=== PATIENT | female | born 1960 | race Caucasian/White ===

== ENCOUNTER 2016-06-21 18:39 | Emergency (ER) | payer OTHER ==
[~2016-06-21] VITALS: Ht 162.6 cm; Wt 68.6 kg
[~2016-06-21 18:39] MED LIST: ADVAIR 100/501 DISK IH; ADVAIR 500/501 DISK IH; AMBIEN10 MG PO; AUGMENTIN875 MG PO; INDERAL60 MG PO; LAMICTAL100 MG PO; LAMICTAL200 MG PO; NEXIUM40 MG PO; NORCO 5/3251 TABLET PO; PHENERGAN50 MG/1 M1 IM; PREDNISONE10 MG PO; PREDNISONE20 MG PO; PROTONIX40 MG PO; PROVENTIL HFA6.7 GM; RELPAX40 MG PO; REQUIP0.25 MG PO; RISPERDAL2 MG PO; ROPINIROLE HCL5 MG PO; SAPHRIS10 MG SL; SEROQUEL100 MG PO; SINGULAIR10 MG PO; SPIRIVA1 INHALATI IH; STADOL NASAL2.5 ML NS; STADOL PO; TAMIFLU75 MG PO; VALIUM10 MG PO; VENTOLIN HFA18 GM IH; VERAPAMIL HCL240 MG PO; VERAPAMIL HCL80 MG PO; VERELAN 240 MG240 MG PO; ZANAFLEX4 M1 PO; ZANAFLEX4 MG PO
[2016-06-21] MEDS ORDERED: PEN-VEE K,VEET500 MG PO (20:26)
[2016-06-21] MEDS ORDERED: NORCO 5/3251 TABLET PO (20:26)
[2016-06-21 21:12] VITALS: BP 114/80
== END 2016-06-21 21:13 | disposition home or self-care (01) ==
LOC: EME 18:39
DX: H61.21 Impacted cerumen, right ear (principal); K02.9 Dental caries, unspecified
CPT/HCPCS: 99281; 99284

== ENCOUNTER 2016-09-11 18:19 | Observation (INO) | payer OTHER ==
[~2016-09-11] VITALS: Ht 160 cm; Wt 67.9 kg
[~2016-09-11 18:19] MED LIST changes: +PEN-VEE K,VEET500 MG PO
[2016-09-11 19:01] LABS: HEMATOCRIT 50.7 % (36.0-46.0); MCH 30.7 PG (29.0-34.0); MCHC 33.1 G/DL (30.0-36.0); MCV 92.5 FL (83-99); PLATELET COUNT 326 K/uL (156-360); RBC DIS.WIDTH-CV 13.3 % (11.8-14.6); RBC DIS.WIDTH-SD 45.6 % (39-53); RED BLOOD COUNT 5.48 M/uL (3.80-5.20); WHITE BLOOD COUNT 11.9 K/uL (4.1-10.2)
[2016-09-11 19:11] LABS: CHLORIDE 106 mEq/L (99-109); POTASSIUM 3.8 mEq/L (3.7-5.4); SODIUM 142 mEq/L (136-147)
[2016-09-11 19:13] LABS: GLUCOSE 97 mg/dL (70-99)
[2016-09-11 19:15] LABS: ANION GAP 16 MEQ/L (2-14); TOTAL BILIRUBIN 0.4 mg/dL (0.0-1.0)
[2016-09-11 19:17] LABS: ALKALINE PHOSPHATASE 130 IU/L (3-129); GFR ESTIMATE (CALCULATED) > 59 mL/min/
[2016-09-11 19:18] LABS: UREA NITROGEN (BUN) 28 mg/dL (9-23)
[2016-09-11 20:24] LABS: LIPASE 14 U/L (1.0-51.0)
[2016-09-11] MEDS ORDERED: RANITIDINE HCL150 MG PO (23:20)
[2016-09-11] MEDS ORDERED: NICOTINE PATCH1 EAC2 TD (23:21)
[2016-09-11] MEDS ORDERED: DIAZEPAM10 MG PO (23:24)
[2016-09-11 23:37] LABS: ADD MIUA? YES; BILIRUBIN NEGATIVE; BLOOD SMALL; COLOR YELLOW ((YELLOW)); GLUCOSE (STRIP) NEGATIVE; KETONES 5; LEUKOCYTES NEGATIVE; NITRITE NEGATIVE; PROTEIN (STRIP) 30; SPECIFIC GRAVITY 1.039 (1.000-1.030); UROBILINOGEN 0.2 MG/DL (0.2-1.0)
[2016-09-11 23:54] LABS: BACTERIA NONE SEEN /HPF; EPITHELIAL CELLS RARE /HPF; MUCUS TRACE /LPF; RED BLOOD CELLS 0-5 /HPF (0-5); UCUL ADDED? NO; WHITE BLOOD CELLS 0-5 /HPF (0-5)
[2016-09-12] MEDS ORDERED: FLAGYL500 MG PO (00:37)
[2016-09-12] MEDS ORDERED: CIPRO500 MG PO (00:37)
[2016-09-12 00:39] LABS: C DIFF TOXIN NEGATIVE (NEGATIVE)
[2016-09-12 01:06] LABS: PROBE CHECK PASS; SPECIMEN PROCESSING CONTROL PASS
[2016-09-12 02:44] VITALS: BP 160/112
== END 2016-09-12 02:45 | disposition left against medical advice (07) ==
LOC: EME 18:19 → 5WEST 23:47 → EDOF 09-12 00:29
PROVIDERS: Emergency Medicine
DX: K52.9 Noninfective gastroenteritis and colitis, unspecified (principal); K92.1 Melena; I10 Essential (primary) hypertension; F17.200 Nicotine dependence, unspecified, uncomplicated
CPT/HCPCS: 74177; 80053; 81003; 83690; 85027; 86850; 86900; 86901; 87493; 87506; 99281; 99284; G0378; J0744; J3010; J7030; S0030

== ENCOUNTER 2016-10-31 18:42 | Emergency (ER) | payer OTHER ==
[~2016-10-31] VITALS: Ht 160 cm; Wt 68.6 kg
[~2016-10-31 18:42] MED LIST changes: +CIPRO500 MG PO; +DIAZEPAM10 MG PO; +FLAGYL500 MG PO; +NICOTINE PATCH1 EAC2 TD; +RANITIDINE HCL150 MG PO
[2016-10-31 19:16] LABS: HEMATOCRIT 40.5 % (36.0-46.0); MCH 29.3 PG (29.0-34.0); MCHC 32.3 G/DL (30.0-36.0); MCV 90.6 FL (83-99); MEAN PLAT.VOLUME 9.7 uM^3 (9.5-12.4); PLATELET COUNT 262 K/uL (156-360); RBC DIS.WIDTH-CV 13.1 % (11.8-14.6); RBC DIS.WIDTH-SD 43.5 % (39-53); RED BLOOD COUNT 4.47 M/uL (3.80-5.20); WHITE BLOOD COUNT 6.5 K/uL (4.1-10.2)
[2016-10-31 19:34] LABS: CHLORIDE 107 mEq/L (99-109); SODIUM 142 mEq/L (136-147)
[2016-10-31 19:36] LABS: GLUCOSE 91 mg/dL (70-99)
[2016-10-31 19:38] LABS: ANION GAP 11 MEQ/L (2-14); TOTAL BILIRUBIN 0.3 mg/dL (0.0-1.0)
[2016-10-31 19:40] LABS: ALKALINE PHOSPHATASE 133 IU/L (3-129); GFR ESTIMATE (CALCULATED) > 59 mL/min/
[2016-10-31 19:41] LABS: UREA NITROGEN (BUN) 15 mg/dL (9-23)
[2016-10-31 22:46] LABS: ADD MIUA? YES; BILIRUBIN NEGATIVE; BLOOD SMALL; COLOR YELLOW ((YELLOW)); GLUCOSE (STRIP) NEGATIVE; KETONES NEGATIVE; LEUKOCYTES LARGE; NITRITE NEGATIVE; PROTEIN (STRIP) NEGATIVE; SPECIFIC GRAVITY 1.014 (1.000-1.030); UROBILINOGEN 0.2 MG/DL (0.2-1.0)
[2016-10-31 22:50] LABS: BACTERIA RARE /HPF; EPITHELIAL CELLS 1+ /HPF; MUCUS TRACE /LPF; RED BLOOD CELLS 0-5 /HPF (0-5); UCUL ADDED? NO; WHITE BLOOD CELLS 0-5 /HPF (0-5)
[2016-10-31 23:12] VITALS: BP 153/94
== END 2016-10-31 23:15 | disposition home or self-care (01) ==
LOC: EME 18:42
DX: N93.9 Abnormal uterine and vaginal bleeding, unspecified (principal); Z85.41 Personal history of malignant neoplasm of cervix uteri; Z88.6 Allergy status to analgesic agent; F17.200 Nicotine dependence, unspecified, uncomplicated
CPT/HCPCS: 76856; 80053; 81003; 85027; 99281; 99284

== ENCOUNTER 2017-04-03 14:49 | Emergency (ER) | payer OTHER ==
[~2017-04-03] VITALS: Ht 162.6 cm; Wt 67.8 kg
[2017-04-03 15:28] LABS: HEMATOCRIT 34.2 % (36.0-46.0); MCH 30.9 PG (29.0-34.0); MCHC 32.7 G/DL (30.0-36.0); MCV 94.5 FL (83-99); MEAN PLAT.VOLUME 9.4 uM^3 (9.5-12.4); PLATELET COUNT 352 K/uL (156-360); RBC DIS.WIDTH-CV 14.6 % (11.8-14.6); RBC DIS.WIDTH-SD 50.7 % (39-53); RED BLOOD COUNT 3.62 M/uL (3.80-5.20); WHITE BLOOD COUNT 7.1 K/uL (4.1-10.2)
[2017-04-03 15:38] LABS: CHLORIDE 109 mEq/L (99-109); POTASSIUM 4.4 mEq/L (3.7-5.4); SODIUM 139 mEq/L (136-147)
[2017-04-03 15:40] LABS: GLUCOSE 98 mg/dL (70-99)
[2017-04-03 15:41] LABS: ANION GAP 10 MEQ/L (2-14)
[2017-04-03 15:44] LABS: GFR ESTIMATE (CALCULATED) > 59 mL/min/
[2017-04-03 15:45] LABS: UREA NITROGEN (BUN) 23 mg/dL (9-23)
[2017-04-03 17:59] LABS: TROP-I INTERPRETATION NEGATIVE; TROPONIN-I 0.01 ng/mL (0.0-0.30)
[2017-04-03 19:55] VITALS: BP 113/68
== END 2017-04-03 19:57 | disposition home or self-care (01) ==
LOC: EME 14:49
PROVIDERS: Emergency Medicine
DX: R29.6 Repeated falls (principal); R51 Headache; S02.2XXA Fracture of nasal bones, initial encounter for closed fracture; W19.XXXA Unspecified fall, initial encounter; Z91.81 History of falling; R03.1 Nonspecific low blood-pressure reading; J44.9 Chronic obstructive pulmonary disease, unspecified; Z85.41 Personal history of malignant neoplasm of cervix uteri; Z90.710 Acquired absence of both cervix and uterus; F14.21 Cocaine dependence, in remission; F17.200 Nicotine dependence, unspecified, uncomplicated
CPT/HCPCS: 70160; 70450; 71020; 80048; 84484; 85027; 93005; 99281; 99285

== ENCOUNTER 2017-06-02 17:02 | Emergency (ER) | payer OTHER ==
[~2017-06-02] VITALS: Ht 162.6 cm; Wt 66.3 kg
[2017-06-02 17:53] LABS: HEMATOCRIT 48.2 % (36.0-46.0); MCH 31.2 PG (29.0-34.0); MCHC 33.6 G/DL (30.0-36.0); MCV 92.7 FL (83-99); MEAN PLAT.VOLUME 9.8 uM^3 (9.5-12.4); PLATELET COUNT 331 K/uL (156-360); RBC DIS.WIDTH-CV 14.1 % (11.8-14.6); WHITE BLOOD COUNT 6.3 K/uL (4.1-10.2)
[2017-06-02 18:05] LABS: CHLORIDE 105 mEq/L (99-109); POTASSIUM 3.9 mEq/L (3.7-5.4); SODIUM 142 mEq/L (136-147)
[2017-06-02 18:07] LABS: GLUCOSE 97 mg/dL (70-99)
[2017-06-02 18:09] LABS: ANION GAP 16 MEQ/L (2-14); TOTAL BILIRUBIN 0.5 mg/dL (0.0-1.0)
[2017-06-02 18:11] LABS: ALKALINE PHOSPHATASE 142 IU/L (3-129); GFR ESTIMATE (CALCULATED) > 59 mL/min/
[2017-06-02 18:12] LABS: UREA NITROGEN (BUN) 16 mg/dL (9-23)
[2017-06-02 18:14] LABS: LIPASE 18 U/L (1.0-51.0)
[2017-06-02 19:57] LABS: ADD MIUA? YES; BILIRUBIN NEGATIVE; BLOOD NEGATIVE; COLOR YELLOW ((YELLOW)); GLUCOSE (STRIP) NEGATIVE; KETONES 80; LEUKOCYTES NEGATIVE; NITRITE NEGATIVE; PROTEIN (STRIP) NEGATIVE; UROBILINOGEN 0.2 MG/DL (0.2-1.0)
[2017-06-02 20:06] LABS: BACTERIA RARE /HPF; EPITHELIAL CELLS 4+ /HPF; MUCUS 1+ /LPF; RED BLOOD CELLS 0-5 /HPF (0-5); UCUL ADDED? NO; WHITE BLOOD CELLS 0-5 /HPF (0-5)
[2017-06-02] MEDS ORDERED: FLAGYL500 MG PO (20:12)
[2017-06-02 20:21] LABS: SPECIFIC GRAVITY 1.082 (1.000-1.030)
[2017-06-02 20:26] VITALS: BP 146/93
== END 2017-06-02 20:25 | disposition home or self-care (01) ==
LOC: EME 17:02
PROVIDERS: Physician Assistant
DX: K52.9 Noninfective gastroenteritis and colitis, unspecified (principal); K21.9 Gastro-esophageal reflux disease without esophagitis; J44.9 Chronic obstructive pulmonary disease, unspecified; Z85.41 Personal history of malignant neoplasm of cervix uteri; K22.70 Barrett's esophagus without dysplasia; F32.9 Major depressive disorder, single episode, unspecified; F17.200 Nicotine dependence, unspecified, uncomplicated; Z88.6 Allergy status to analgesic agent
CPT/HCPCS: 74177; 80053; 81003; 83690; 85027; 99281; 99284; J2405; J7030

== ENCOUNTER 2017-08-21 16:43 | Emergency (ER) | payer OTHER ==
[~2017-08-21] VITALS: Ht 160 cm; Wt 69.1 kg
[2017-08-21 17:22] LABS: BASOPHIL (%) 0.8 % (0-1); BASOPHIL COUNT 0.1 K/uL (0-0.1); EOSINOPHIL COUNT 0.3 K/uL (0-0.3); HEMATOCRIT 42.4 % (36.0-46.0); IMMATURE GRANULOCYTE (%) 0.3 % (0.0-0.7); LYMPHOCYTE (%) 40.1 % (15-42); LYMPHOCYTE COUNT 2.9 K/uL (1.0-2.8); MCH 30.9 PG (29.0-34.0); MCV 93.6 FL (83-99); MONOCYTE (%) 6.3 % (3-12); MONOCYTE COUNT 0.5 K/uL (0-0.8); NEUTROPHIL (%) 48.5 % (45-76); NEUTROPHIL COUNT 3.5 K/uL (1.8-6.4); PLATELET COUNT 292 K/uL (156-360); RBC DIS.WIDTH-CV 14.6 % (11.8-14.6); RBC DIS.WIDTH-SD 50.7 % (39-53); RED BLOOD COUNT 4.53 M/uL (3.80-5.20); WHITE BLOOD COUNT 7.3 K/uL (4.1-10.2)
[2017-08-21 18:07] LABS: ALBUMIN 3.6 g/dL (3.2-4.8); CHLORIDE 111 mEq/L (99-109); POTASSIUM 4.4 mEq/L (3.7-5.4); SODIUM 146 mEq/L (136-147)
[2017-08-21 18:10] LABS: GLUCOSE 93 mg/dL (70-99); TOTAL PROTEIN 6.4 g/dL (6.4-8.3)
[2017-08-21 18:12] LABS: TOTAL BILIRUBIN 0.1 mg/dL (0.0-1.0)
[2017-08-21 18:13] LABS: ALKALINE PHOSPHATASE 125 IU/L (3-129); CREATININE 0.8 mg/dL (0.6-1.3); GFR ESTIMATE (CALCULATED) > 59 mL/min/
[2017-08-21 18:14] LABS: UREA NITROGEN (BUN) 15 mg/dL (9-23)
[2017-08-21 18:15] LABS: AST (GOT) 9 IU/L (2-34)
[2017-08-21 18:16] LABS: ALT (GPT) 8 IU/L (3-49)
[2017-08-21 18:17] LABS: LIPASE 18 U/L (1.0-51.0)
[2017-08-21 20:57] LABS: APPEARANCE SL.HAZY ((CLEAR)); BILIRUBIN NEGATIVE; BLOOD SMALL; COLOR YELLOW ((YELLOW)); GLUCOSE (STRIP) NEGATIVE; KETONES NEGATIVE; LEUKOCYTES MODERATE; NITRITE NEGATIVE; PROTEIN (STRIP) NEGATIVE; UROBILINOGEN 0.2 MG/DL (0.2-1.0)
[2017-08-21 21:00] LABS: BACTERIA RARE /HPF; EPITHELIAL CELLS RARE /HPF; MUCUS TRACE /LPF
[2017-08-21] MEDS ORDERED: CIPRO500 MG PO (21:31)
[2017-08-21] MEDS ORDERED: FLAGYL500 MG PO (21:32)
[2017-08-21 22:41] VITALS: BP 152/95
== END 2017-08-21 22:42 | disposition home or self-care (01) ==
LOC: EME 16:43
PROVIDERS: Physician Assistant
DX: K52.9 Noninfective gastroenteritis and colitis, unspecified (principal); K59.00 Constipation, unspecified; K76.0 Fatty (change of) liver, not elsewhere classified; Q63.1 Lobulated, fused and horseshoe kidney; K21.9 Gastro-esophageal reflux disease without esophagitis; J44.9 Chronic obstructive pulmonary disease, unspecified; K31.84 Gastroparesis; K22.70 Barrett's esophagus without dysplasia; F32.9 Major depressive disorder, single episode, unspecified; F17.200 Nicotine dependence, unspecified, uncomplicated; Z85.41 Personal history of malignant neoplasm of cervix uteri; Z88.6 Allergy status to analgesic agent; Z88.5 Allergy status to narcotic agent; Z88.8 Allergy status to other drugs, medicaments and biological substances
CPT/HCPCS: 74177; 80053; 81003; 83690; 85025; 99281; 99285; J2405; J7030